=== PATIENT | female | born 2000 | race Caucasian/White ===

== ENCOUNTER 2025-05-10 22:55 | Emergency (ER) | payer OTHER, SELFPAY ==
[2025-05-10 23:04] VITALS: BP 120/75; PULSE 82; RESP 18; TEMP 36.9; O2SAT 97; BMI 19.7
--- NOTE | 2025-05-10 23:20 | DI.US.S_ITS ---
PROCEDURE: US OB <= 14 WEEKS FETUS INDICATIONS: 9 weeks with cramping OUTSIDE/PRIOR DATING DATA: Last menstrual period (LMP): 03/06/2025. LMP-based estimated date of delivery (GANESH): 12/11/2025. First dating scan (date and location): 05/11/2025. Estimated date of delivery (GANESH) from first dating scan: 12/11/2025. TECHNIQUE: Real-time scanning was performed of the fetus and maternal pelvic organs, with image documentation. Endovaginal scanning was also performed to better visualize the fetus and maternal ovaries. COMPARISON: None. FINDINGS: Single living intrauterine . Embryo: Present, measuring 2.5 cm, corresponding to 9 weeks 2 days. Heart rate: 162 beats per minute Maternal organs: Right-sided corpus luteum. Left ovary is unremarkable. IMPRESSION: Single living intrauterine at 9 weeks 2 days, GANESH 12/11/2025. Findings are concordant with clinical dating. We strive to produce accurate, complete, and clear reports of imaging services. To assist us in improving patient care, this report was composed using standard report templates and voice recognition software. Therefore, it may contain abnormal punctuation, insertions and/or omissions. Occasional wrong-word or sound-alike substitutions may occur. Though we review the report and make efforts to correct it, we do recommend that the report be read carefully in proper context to recognize any text inaccuracies. Dictated by: Everton Romero M.D. on 05/11/2025 at 0:19 Approved by: Everton Romero M.D. on 05/11/2025 at 0:23
[2025-05-10 23:54] LABS: Appearance Urine UA CLEAR; Bilirubin Urine UA NEGATIVE (NEGATIVE); Color Urine UA Straw; Glucose Urine UA NEGATIVE (Negative); Ketones Urine UA NEGATIVE (NEGATIVE); Leukocyte Esterase Urine UA NEGATIVE (NEGATIVE); Nitrite Urine UA NEGATIVE (Negative); Occult Blood Urine UA NEGATIVE (Negative); Protein Urine UA NEGATIVE (Negative); Specific Gravity Urine UA 1.010 (1.000-1.035); Urobilinogen Urine UA 0.2 E.U./dL (0.2); pH Urine UA 7.5 (4.5-8.0)
[2025-05-11] LABS: Culture Indicated Urine Cult Not Indicated
[2025-05-11 00:29] LABS: Add Manual Diff / Slide Review NO; Hematocrit 34.2 % (36-46); Hemoglobin 12.4 g/dL (12.0-16.0); Lymphocytes Absolute Auto 3300 /uL (1100-4500); Mean Corpuscular HGB Conc 36.3 % (30-36); Mean Corpuscular Hemoglobin 32.3 PG (26-34); Mean Corpuscular Volume 88.8 fL (80-100); Platelet Count 315 X10^3/uL (150-400)
[2025-05-11 00:37] LABS: Alanine Aminotransferase 11 IU/L (<35); Albumin 4.3 g/dL (3.5-5.0); Albumin Globulin Ratio 1.6 (1.0-2.8); Alkaline Phosphatase 43 U/L (38-126); Blood Urea Nitrogen 3 mg/dL (7-17); Calcium 9.0 mg/dL (8.4-10.2); Carbon Dioxide 19 mmol/L (22-32); Chloride 107 mmol/L (98-107); Estimated Glomerular Filt Rate > 60 mL/min (>60); Globulin 2.7 g/dL (1.7-4.1); Glucose 89 mg/dL (70-99); HEMOLYSIS < 15 (0-50); Potassium 3.6 mmol/L (3.4-5.1); Sodium 135 mmol/L (137-145); Total Protein 7.0 g/dL (6.3-8.2)
[2025-05-11 00:54] LABS: Rouleaux 1+
--- NOTE | 2025-05-11 01:57 | ED.PREGNANCY ---
HPI - General Chief complaint: OB/Uterine Contractions Stated complaint: 9 wks preg, intense cramping, hist of miscarriage Time Seen by Provider: 05/10/25 23:56 Source: patient Mode of arrival: Ambulatory Limitations: no limitations History of Present Illness HPI Narrative: Patient is a 24-year-old female without any significant past medical history who is a proximally 9 weeks , states this is her 2nd presents to the emergency department from home for evaluation of pelvic cramping, denies any vaginal bleeding or discharge, states that she had 1 episode of a miscarriage last year states that she is worried because it seems somewhat similar. States that she does not have an OB appointment yet but is set to follow up with Dr. Price. Patient denies any other symptoms at this time. Related Data Previous Rx's ?Medication ?Instructions ?Recorded cephalexin 500 mg capsule 500 mg PO Q8H 7 days #21 caps 05/11/25 Allergies Allergy/AdvReac Type Severity Reaction Status Date / Time No Known Drug Allergies Allergy Verified 05/10/25 23:04 Exam Initial Vital Signs Initial Vital Signs: Vital Signs Temperature 98.4 F 05/10/25 23:04 Pulse Rate 82 05/10/25 23:04 Respiratory Rate 18 05/10/25 23:04 Blood Pressure 120/75 05/10/25 23:04 Pulse Oximetry 97 05/10/25 23:04 Oxygen Delivery Method Room Air 05/10/25 23:04 Course Orders Ordered: ED Orders 05/10/25 23:20 US OB <= 14 weeks fetus Stat ABO RH Type Stat 05/10/25 23:21 CMP [Comprehensive Metabolic Panel] Stat 05/10/25 23:22 CBC Auto Diff [Complete Blood Count AUTO DIFF] Stat 05/10/25 23:40 Urinalysis and Microscopic Stat Discontinued Medications Acetaminophen (Acetaminophen 325 Mg Tablet) 650 mg PO NOW ONE Stop: 05/10/25 23:57 Vital Signs Vital signs: Vital Signs - 8 hr 05/10/25 23:04 Temperature 98.4 F Pulse Rate 82 Respiratory Rate 18 Blood Pressure 120/75 Pulse Oximetry 97 Oxygen Delivery Method Room Air MDM - OB/Uterine Contractions Differential Diagnosis Differential diagnosis: Likely other (Intrauterine , threatened , spontaneous ) Lab Data 05/11/25 00:13 05/11/25 00:13 Labs: Lab Results 07/22/25 07/23/25 Range/Units 23:40 00:13 WBC 11.9 H (4.5-11.0) X10^3/uL RBC 3.85 L (4.0-5.2) X10^6/uL Hgb 12.4 (12.0-16.0) g/dL Hct 34.2 L (36-46) % MCV 88.8 (80-100) fL MCH 32.3 (26-34) PG MCHC 36.3 H (30-36) % RDW 11.8 (11.6-14.8) % Plt Count 315 (150-400) X10^3/uL Neut % (Auto) 61.5 (50-75) % Lymph % (Auto) 28.1 (25-40) % [place] % (Auto) 8.5 (3-14) % Eos % (Auto) 1.6 L (2-4) % Baso % (Auto) 0.3 (0-2) % Neut # (Auto) 7300 H (7594-8197) /uL Lymph # (Auto) 3300 (1533-7344) /uL [place] # (Auto) 1000 H (0-900) /uL Eos # (Auto) 200 (0-450) /uL Baso # (Auto) 0 (0-100) /uL RBC Morphology See below Rouleaux 1+ H Sodium 135 L (137-145) mmol/L Potassium 3.6 (3.4-5.1) mmol/L Chloride 107 (98-107) mmol/L Carbon Dioxide 19 L (22-32) mmol/L BUN 3 L (7-17) mg/dL Creatinine 0.41 L (0.52-1.04) mg/dL Estimated GFR > 60 (>60) mL/min BUN/Creatinine Ratio 7.3 (6-22) Glucose 89 (70-99) mg/dL Calcium 9.0 (8.4-10.2) mg/dL Total Bilirubin 0.3 (0.2-1.3) mg/dL AST 19 (14-36) IU/L ALT 11 (<35) IU/L Alkaline Phosphatase 43 (38-126) U/L Total Protein 7.0 (6.3-8.2) g/dL Albumin 4.3 (3.5-5.0) g/dL Globulin 2.7 (1.7-4.1) g/dL Albumin/Globulin Ratio 1.6 (1.0-2.8) Urine Color Straw Urine Appearance Clear Urine pH 7.5 (4.5-8.0) Ur Specific [place] 1.010 (1.000-1.035) Urine Protein Negative (Negative) Urine Glucose (UA) Negative (Negative) g/dL Urine Ketones Negative (NEGATIVE) Urine Occult Blood Negative (Negative) Urine Nitrate Negative (Negative) Urine Bilirubin Negative (NEGATIVE) Urine Urobilinogen 0.2 (0.2) E.U./dL Ur Leukocyte Esterase Negative (NEGATIVE) Urine RBC None seen (0-5/HPF) Urine WBC None seen (0-5/HPF) Ur Squamous Epith Cells 0-1 /hpf (0-5/HPF) Urine Bacteria Few (2-10) H (None) Ur Culture Indicated? Cult not indicated Vol Urine Centrifuged 10ml (spun) Blood Type A Positive Imaging Data US - OB: Radiologist's Impression: [address] [address] Ultrasound Report Signed Patient: Leslie Costello MR#: [id number] : 2000 Acct:[id number] Age/Sex: 24 / F Date of Service: 05/10/25 Loc: Accession Number: [id number] Procedure: US OB <= 14 weeks fetus Ordering Provider: Alexis Pat D.O. PROCEDURE: US OB <= 14 WEEKS FETUS INDICATIONS: 9 weeks with cramping OUTSIDE/PRIOR DATING DATA: Last menstrual period (LMP): 03/06/2025. LMP-based estimated date of delivery (GANESH): 12/11/2025. First dating scan (date and location): 05/11/2025. Estimated date of delivery (GANESH) from first dating scan: 12/11/2025. TECHNIQUE: Real-time scanning was performed of the fetus and maternal pelvic organs, with image documentation. Endovaginal scanning was also performed to better visualize the fetus and maternal ovaries. COMPARISON: None. FINDINGS: Single living intrauterine . Embryo: Present, measuring 2.5 cm, corresponding to 9 weeks 2 days. Heart rate: 162 beats per minute Maternal organs: Right-sided corpus luteum. Left ovary is unremarkable. IMPRESSION: Single living intrauterine at 9 weeks 2 days, GANESH 12/11/2025. Findings are concordant with clinical dating. MDM Narrative Medical decision making narrative: Patient is a 24-year-old female presenting for pelvic pain, states that she has a proximally 9 weeks , states this is her 2nd states that she had 1 spontaneous miscarriage a year ago. States that she is having some pelvic cramping no vaginal bleeding or discharge and therefore came into the ED for evaluation. Patient had ultrasound that showed a single living intrauterine at 9 weeks, urinalysis was consistent with a asymptomatic bacteriuria, patient will be treated for this and informed to follow up with her OBGYN. Patient states that she has not seen her OBGYN but is in the process of seeing Dr. Price. Patient was given strict return precautions verbalized understanding of this and agrees to being discharged home with outpatient follow up Discharge Plan Departure Patient Disposition: Home Clinical Impression: Asymptomatic bacteriuria during Activity Restrictions/Additional Instructions: Please follow up with your OBGYN Please read the discharge instructions sheet carefully and bring all papers to all doctor follow-up visits, as it may contain information that your doctor may want to see. Disease processes change and evolve, if your symptoms worsen or if you develop any new symptoms that are concerning to you please return for evaluation. Your evaluation today does not show any evidence of any life-threatening/serious illnesses requiring admission to the hospital or surgery. Please follow-up with your doctor for re-evaluation in approximately 1 day. Seek immediate medical attention for any worrisome symptoms. *If you do not have a primary care provider please contact the [facility] Resource line at [phone]. They will ask some questions about your medical history and help get you set up with a doctor in the community. Prescriptions: New cephalexin 500 mg capsule 500 mg PO Q8H 7 Days Qty: 21 0RF Stand Alone Forms: Patient Portal/API
--- NOTE | 2025-05-11 02:00 | PC.NURSE ---
Provider in room to assess and tx pt before RN able to assess.
[2025-05-11 02:02] VITALS: BP 102/57; PULSE 64; RESP 16; TEMP 36.8; O2SAT 100
[2025-05-11 03:02] LABS: HCG Quantitative /Beta subunit 109230 mIU/mL
== END 2025-05-11 02:19 | disposition home or self-care (01) ==
PROVIDERS: Emergency Provider Student in an Organized Health Care Education/Training Program
DX: O99.891 Other specified diseases and conditions complicating pregnancy (principal); Z3A.09 9 weeks gestation of pregnancy
CPT/HCPCS: 36415; 76801; 76817; 80053; 81001; 84702; 85025; 86900; 86901; 99283; 99284

== ENCOUNTER → 2025-05-27 11:11 | Outpatient (CLI) | payer OTHER, SELFPAY ==
[2025-05-27 12:22] LABS: Natera Collection Specimen Collected
[2025-05-27 12:28] LABS: Appearance Urine UA CLEAR; Bilirubin Urine UA NEGATIVE (NEGATIVE); Color Urine UA YELLOW; Glucose Urine UA NEGATIVE (Negative); Ketones Urine UA NEGATIVE (NEGATIVE); Leukocyte Esterase Urine UA NEGATIVE (NEGATIVE); Nitrite Urine UA NEGATIVE (Negative); Occult Blood Urine UA NEGATIVE (Negative); Protein Urine UA NEGATIVE (Negative); Specific Gravity Urine UA 1.010 (1.000-1.035); Urobilinogen Urine UA 0.2 E.U./dL (0.2)
[2025-05-27 12:29] LABS: pH Urine UA 6.5 (4.5-8.0)
[2025-05-27 13:02] LABS: Hepatitis B Surface Antigen NEGATIVE s/c (NEGATIVE)
[2025-05-27 13:19] LABS: HIV 1 & 2 Ab/Ag 4th Gen Combo NEGATIVE (NEGATIVE); Hep C Virus Ab w/Reflex Quant NEGATIVE s/c (NEGATIVE)
[2025-05-27 20:38] LABS: Add Manual Diff / Slide Review NO; Hematocrit 36.4 % (36-46); Hemoglobin 12.9 g/dL (12.0-16.0); Lymphocytes Absolute Auto 1800 /uL (1100-4500); Mean Corpuscular HGB Conc 35.5 % (30-36); Mean Corpuscular Hemoglobin 32.2 PG (26-34); Mean Corpuscular Volume 90.8 fL (80-100); Platelet Count 301 X10^3/uL (150-400)
== END ==
PROVIDERS: Referring Provider Family Medicine; Visit Provider Family Medicine
DX: Z34.81 Encounter for supervision of other normal pregnancy, first trimester (principal)
CPT/HCPCS: 36415; 80055; 81003; 86787; 86803; 86850; 86900; 86901; 87086; 87389

== ENCOUNTER → 2025-07-15 11:56 | Outpatient (CLI) | payer OTHER, SELFPAY ==
--- NOTE | 2025-07-15 11:56 | DI.US.S_ITS ---
PROCEDURE: US OB >= 14 WEEKS FETUS INDICATIONS: Anstomy scan OUTSIDE/PRIOR DATING DATA: Last menstrual period (LMP): 03/06/2025 LMP-based estimated date of delivery (GANESH): 12/11/2025 First dating scan (date and location): 05/11/2025 Estimated date of delivery (GANESH) from first dating scan: 12/11/2025. The calculations are made using the working GANESH of 12/04/2025. TECHNIQUE: Real-time scanning was performed of the fetus, with image documentation and biometric measurements. Endovaginal scanning: Not perform COMPARISON: 05/11/2025. FINDINGS: General: A single living intrauterine gestation is present. Presentation: Variable. Placenta: Placental position is posterior, without previa. Amniotic fluid index: 15.2. cm, normal range is 5-24 cm. Single deepest vertical pocket is 4.1 cm. heart rate: 144 beats per minute. Maternal cervical canal: Closed and measures 3.9 cm long. Normal lower limit is 2.5 cm. biometrics: Biparietal diameter: 4.6 cm, 20 weeks, 0 day. Head circumference: 16.7 cm, 19 weeks, 3 days. Abdominal circumference: 14.8 cm, 20 weeks, 1 day. Femur length: 2.9 cm, 19 weeks, 0 day. Clinically estimated gestational age: 18 weeks, 5 days. Composite gestational age from present scan: 19 weeks, 5 days. Estimated weight and percentile: 302 g, 91%. Anatomic survey: Neuro: Ventricles are non-dilated at less than 10 mm. Cisterna magna is normal at 3-11 mm. Cerebellum is normal in size and morphology. Nuchal skin fold: Normal at less than 6 mm between 14-21 weeks gestational age. Face: Nose and lips, facial profile are normal. Spine: No evidence for spina bifida. Heart: 4-chambered heart is present, with normal ventricular outflow tracts. Diaphragm: Diaphragm is intact. Stomach: Left-sided stomach is present. Kidneys: No hydronephrosis. Normal is less than 5 mm in 2nd trimester, less than 7 mm in 3rd trimester. Cord: 3-vessel cord has orthotopic insertion. Bladder: Normal in size. Extremities: All 4 extremities identified. IMPRESSION: 1. Single live intrauterine gestation with fetus in variable presentation. heart rate is 144 beats per minute. Normal BEBA at 15.2 cm. 2. Normal growth. Estimated weight is at 91%. 3. anatomic survey is normal. We strive to produce accurate, complete, and clear reports of imaging services. To assist us in improving patient care, this report was composed using standard report templates and voice recognition software. Therefore, it may contain abnormal punctuation, insertions and/or omissions. Occasional wrong-word or sound-alike substitutions may occur. Though we review the report and make efforts to correct it, we do recommend that the report be read carefully in proper context to recognize any text inaccuracies. Dictated by: Larry Howe M.D. on 07/16/2025 at 1:08 Approved by: Larry Howe M.D. on 07/16/2025 at 1:18
== END ==
PROVIDERS: Referring Provider Family Medicine; Visit Provider Family Medicine
DX: Z34.82 Encounter for supervision of other normal pregnancy, second trimester (principal); Z3A.19 19 weeks gestation of pregnancy
CPT/HCPCS: 76811

== ENCOUNTER 2025-08-11 20:48 | Outpatient (CLI) | payer OTHER, SELFPAY | END 2025-08-11 21:18 | disposition home or self-care (01) | LOC: OB 08-12 07:41 | PROVIDERS: Referring Provider Obstetrics & Gynecology; Visit Provider Obstetrics & Gynecology | DX: O36.8130 Decreased fetal movements, third trimester, not applicable or unspecified (principal); Z3A.22 22 weeks gestation of pregnancy | CPT/HCPCS: G0378; G0379 ==

== ENCOUNTER → 2025-08-24 11:19 | Outpatient (CLI) | payer OTHER, SELFPAY ==
[2025-08-24 13:08] LABS: Hematocrit 31.8 % (36-46); Hemoglobin 11.2 g/dL (12.0-16.0); Mean Corpuscular HGB Conc 35.2 % (30-36); Mean Corpuscular Hemoglobin 32.2 PG (26-34); Mean Corpuscular Volume 91.4 fL (80-100); Platelet Count 267 X10^3/uL (150-400)
[2025-08-24 13:28] LABS: GTT (PREG) 1 Hour PP 50gm Dose 105 mg/dL (76-139)
== END ==
PROVIDERS: Referring Provider Family Medicine; Visit Provider Family Medicine
DX: Z34.80 Encounter for supervision of other normal pregnancy, unspecified trimester (principal)
CPT/HCPCS: 82950; 85027

== ENCOUNTER → 2025-10-04 06:37 | Outpatient (CLI) | payer OTHER, SELFPAY ==
--- NOTE | 2025-10-04 06:38 | DI.US.S_ITS ---
PROCEDURE: US OB LIMITED INDICATIONS: LARGE FOR GESTATIONAL AGE OUTSIDE/PRIOR DATING DATA: Last menstrual period (LMP): March 06, 2025. LMP-based estimated date of delivery (GANESH): December 11, 2025. First dating scan (date and location): May 11, 2025. Estimated date of delivery (GANESH) from first dating scan: December 11, 2025. The calculations are made using the LMP GANESH of December 15, 2025. TECHNIQUE: Real-time scanning was performed of the fetus, with image documentation and biometric measurements. Endovaginal scanning: Not performed COMPARISON: [facility] OB <= 14 WEEKS FETUS, 05/10/2025, 23:50. [facility] OB >= 14 WEEKS FETUS, 07/15/2025, 12:46. FINDINGS: General: A single living intrauterine gestation is present. Presentation: Vertex. Placenta: Placental position is posterior without previa. Amniotic fluid index: 17.4 cm, normal range is 5-24 cm. Single deepest vertical pocket is 6.6 cm. heart rate: 133 beats per minute. Maternal cervical canal: Closed 3.6 cm long. Normal lower limit is 2.5 cm. biometrics: Biparietal diameter: 33 weeks 3 days Head circumference: 31 weeks 4 days Abdominal circumference: 30 weeks 5 days Femur length: 31 weeks 5 days Clinically estimated gestational age: 30 weeks 2 days Composite gestational age from present scan: 31 weeks 6 days Estimated weight and percentile: 1749 grams; 75th percentile Other: Not applicable. IMPRESSION: Single living intrauterine gestation. Normal amniotic fluid index. Normal growth with estimated age present scan of 31 weeks 6 days and estimated weight 1749 grams (75th percentile for gestational age). Dictated by: Frannie Tabares MD, PhD on 10/04/2025 at 9:44 Approved by: Frannie Tabares MD, PhD on 10/04/2025 at 9:48
[2025-10-04 07:48] LABS: Hematocrit 29.2 % (36-46); Hemoglobin 10.6 g/dL (12.0-16.0); Mean Corpuscular HGB Conc 36.2 % (30-36); Mean Corpuscular Hemoglobin 32.1 PG (26-34); Mean Corpuscular Volume 88.7 fL (80-100); Platelet Count 271 X10^3/uL (150-400)
[2025-10-04 08:02] LABS: HEMOLYSIS < 15 (0-50); Iron 33 ug/dL (37-170)
[2025-10-04 08:14] LABS: Percent Iron Saturation 8 % (15-50); Total Iron Binding Capacity 429 ug/dL (265-497); Transferrin 350 mg/dL (206-381)
[2025-10-04 08:39] LABS: Ferritin 6 ng/mL (6-137)
== END ==
LOC: US 06:37
PROVIDERS: Referring Provider Family Medicine; Visit Provider Family Medicine
DX: O36.63X0 Maternal care for excessive fetal growth, third trimester, not applicable or unspecified (principal); O99.891 Other specified diseases and conditions complicating pregnancy; L29.9 Pruritus, unspecified; Z3A.31 31 weeks gestation of pregnancy
CPT/HCPCS: 36415; 76815; 82239; 82728; 83540; 83550; 85027